=== PATIENT | female | born 1990 | race Two or more races ===

== ENCOUNTER 2018-07-14 11:15 | Emergency (ER) | payer OTHER ==
[2018-07-14 11:21] VITALS: BMI 22.6
--- NOTE | 2018-07-14 12:12 | PDOC ---
History of Present Illness - General History Source: Patient Exam Limitations: No Limitations - History of Present Illness Initial Comments: 07/14/18 13:04 Patient is a 28-year-old female, [id number], with no past medical history, who presents to the emergency department today for vaginal bleeding. Patient states that she took home test on Wednesday and it was positive. Patient states that the first day of her last menstrual cycle was May 07 2018. Today patient states she noted faint red blood on the toilet paper when she wiped. She was concerned so she came to the emergency department. Denies fevers, chills , abdominal pain, nausea, vomiting, frequency, urgency. <Beverly Nunez - Last Filed: 07/14/18 16:46> <Marquez Fragoso - Last Filed: 07/15/18 13:23> - General Chief Complaint: Vaginal Sxs Stated Complaint: VAGINAL BLEEDING () Time Seen by Provider: 07/14/18 12:07 Past History - Travel Traveled outside of the country in the last 30 days: No Close contact w/someone who was outside of country & ill: No - Past Medical History COPD: No - Suicide/Smoking/Psychosocial Hx Smoking History: Never smoked Information on smoking cessation initiated: No Hx Alcohol Use: No Drug/Substance Use Hx: No Substance Use Type: None <Beverly Nunez - Last Filed: 07/14/18 16:46> <Marquez Fragoso - Last Filed: 07/15/18 13:23> - Past Medical History Allergies/Adverse Reactions: Allergies Allergy/AdvReac Type Severity Reaction Status Date / Time No Known Allergies Allergy Verified 07/14/18 11:20 Home Medications: Ambulatory Orders Cephalexin Monohydrate [Keflex -] 500 mg PO BID #14 capsule 07/14/18 Review of Systems - Review of Systems Able to Perform ROS?: Yes Comments:: 07/14/18 12:09 CONSTITUTIONAL: Absent: fever, chills, diaphoresis, generalized weakness, malaise, loss of appetite HEENT: Absent: rhinorrhea, nasal congestion, throat pain, throat swelling, difficulty swallowing, mouth swelling, ear pain, eye pain, visual Changes CARDIOVASCULAR: Absent: chest pain, loss of consciousness, palpitations, irregular heart rate, peripheral edema RESPIRATORY: Absent: cough, shortness of breath, dyspnea with exertion, orthopnea, wheezing, stridor, hemoptysis GASTROINTESTINAL: Absent: abdominal pain, abdominal distension, nausea, vomiting, diarrhea, constipation, melena, hematochezia GENITOURINARY: Present: vaginal bleeding; Absent: dysuria, frequency, urgency, hesitancy, hematuria, flank pain, genital pain MUSCULOSKELETAL: Absent: myalgia, arthralgia, joint swelling SKIN: Absent: rash, itching, pallor HEMATOLOGIC/IMMUNOLOGIC: Absent: easy bleeding, easy bruising, lymphadenopathy, frequent infections ENDOCRINE: Absent: unexplained weight gain, unexplained weight loss, heat intolerance, cold intolerance NEUROLOGIC: Absent: headache, focal weakness or paresthesias, dizziness, unsteady gait, seizure, mental status changes, bladder or bowel incontinence PSYCHIATRIC: Absent: anxiety, depression, suicidal or homicidal ideation, hallucinations. Is the patient limited Mongolian proficient: No <Beverly Nunez - Last Filed: 07/14/18 16:46> *Physical Exam - Vital Signs Last Vital Signs Temp Pulse Resp BP Pulse Ox 98 F 93 H 19 129/74 100 07/14/18 11:17 18 11:17 07/14/18 11:17 07/14/18 11:17 07/14/18 11:17 - Physical Exam Comments: 07/14/18 12:09 GENERAL: Well developed, well nourished. Awake and alert. No acute distress. HEENT: Normocephalic, atraumatic. PERRLA, EOMI. No conjunctival pallor. Sclera are non- icteric. Moist mucous membranes. Oropharynx is clear. NECK: Supple. Full ROM. No JVD. Carotid pulses 2+ and symmetric, without bruits. No thyromegaly. No lymphadenopathy. CARDIOVASCULAR: Regular rate and rhythm. No murmurs, rubs, or gallops. Distal pulses are 2+ and symmetric. PULMONARY: No evidence of respiratory distress. Lungs clear to auscultation bilaterally. No wheezing, rales or rhonchi. ABDOMINAL: Soft. Non-tender. Non-distended. No rebound or guarding. No organomegaly. Normoactive bowel sounds. Pelvic: External genitalia normal without lesions. Vaginal vault is with scant bright red blood blood. Cervix is long and closed. No cervical motion tenderness. Uterus is nontender and normal in size. Adnexa are nontender and without masses. MUSCULOSKELETAL Normal range of motion at all joints. No bony deformities or tenderness. No CVA tenderness. EXTREMITIES: No cyanosis. No clubbing. No edema. No calf tenderness. SKIN: Warm and dry. Normal capillary refill. No rashes. No jaundice. NEUROLOGICAL: Alert, awake, appropriate. Cranial nerves 2-12 intact. No deficits to light touch and temperature in face, upper extremities and lower extremities. No motor deficits in the in face, upper extremities and lower extremities. Normoreflexic in the upper and lower extremities. Normal speech. Toes are down- going bilaterally. Gait is normal without ataxia. PSYCHIATRIC: Cooperative. Good eye contact. Appropriate mood and affect. <Beverly Nunez - Last Filed: 07/14/18 16:46> - Vital Signs Last Vital Signs Temp Pulse Resp BP Pulse Ox 97.8 F 71 17 118/59 L 100 07/14/18 17:45 07/14/18 17:45 07/14/18 17:45 07/14/18 17:45 07/14/18 17:45 <Marquez Fragoso - Last Filed: 07/15/18 13:23> ED Treatment Course - LABORATORY CBC & Chemistry Diagram: 07/14/18 12:28 <Beverly Nunez - Last Filed: 07/14/18 16:46> - LABORATORY CBC & Chemistry Diagram: 07/14/18 12:28 - ADDITIONAL ORDERS Additional order review: 07/14/18 12:28 RBC 4.34 MCV 89.0 MCHC 33.9 RDW 12.6 MPV 10.6 Neutrophils % 35.5 L Lymphocytes % 50.2 H Monocytes % 12.2 H Eosinophils % 1.3 Basophils % 0.8 - Medications Given in the ED: ED Medications Discontinued Medications Generic Name Dose Route Start Last Admin Trade Name Freq PRN Reason Stop Dose Admin Rho Immune Globulin 1,500 unit 07/14/18 15:20 07/14/18 17:23 Rhogam Plus IM 07/14/18 15:21 1,500 unit ONCE ONE Administration <Marquez Fragoso - Last Filed: 07/15/18 13:23> Medical Decision Making - Medical Decision Making 07/14/18 15:46 Patient is a 28-year-old female, G2 A1 P0 who presents to the emergency department today for vaginal bleeding. Last menstrual cycle began on 05/07/2018. On exam patient with scant right red blood in the vaginal vault. Os is closed at this time. No CMT or adnexal tenderness. UA with +1 leuks; we'll treat prophylactically for UTI given patient is . Ultrasound shows no IUP at this time. Beta is about 600. Early versus miscarriage Patient's blood type is A-. We'll treat with RhoGAM at this time. Patient with no pain at this time. We'll discharge home with strict return precautions. Patient is instructed to return in 2 days for repeat beta and ultrasound. I discussed the physical exam findings, ancillary test results and final diagnoses with the patient. I answered all of the patient's questions. The patient was satisfied with the care received and felt comfortable with the discharge plan and treatment plan. The Patient agrees to follow up with the primary care physician/specialist within 24-72 hours. Return precautions were given. <Beverly Nunez - Last Filed: 07/14/18 16:46> - Medical Decision Making I reviewed the case of the mid-level practitioner and was available for consultation while in the emergency department <Marquez Fragoso - Last Filed: 07/15/18 13:23> *DC/Admit/Observation/Transfer - Discharge Dispostion Decision to Admit order: No <Beverly Nunez - Last Filed: 07/14/18 16:46> <Marquez Fragoso - Last Filed: 07/15/18 13:23> Diagnosis at time of Disposition: Threatened - Discharge Dispostion Disposition: HOME Condition at time of disposition: Stable - Prescriptions Prescriptions: Cephalexin Monohydrate [Keflex -] 500 mg PO BID #14 capsule - Referrals Referrals: Amber Felipe [Primary Care Provider] - - Patient Instructions Printed Discharge Instructions: DI for Urinary Tract Infection (UTI), DI for Vaginal Bleeding During Additional Instructions: You were evaluated for your vaginal bleeding today. Your ultrasound did not show a at this time. This is most likely due to the fact that you are approximately 4 weeks . You need to return to the emergency department in 2 days for repeat beta and ultrasound to monitor the . Your given RhoGAM today. You also have a urinary tract infection at this time. Please take Keflex twice a day for one week. Drink plenty of fluids. Please follow up with your [employer] this week. Return to the emergency department sooner if he develops worsening bleeding ( bleeding through more than 1 pad an hour), fevers, abdominal pain, or if you have any changes in your symptoms.
[2018-07-14 12:46] LABS: BASO % 0.8 % (0-2.0); EOS % 1.3 % (0-4.5); HEMATOCRIT 38.6 % (32.4-45.2); HEMOGLOBIN 13.1 GM/dL (10.7-15.3); LYMPH % 50.2 % (8-40); MCH 30.2 pg (25.7-33.7); MCHC 33.9 g/dl (32.0-36.0); MEAN PLT VOLUME 10.6 fl (7.5-11.1); MONO % 12.2 % (3.8-10.2); NEUT % 35.5 % (42.8-82.8); PLATELET COUNT 195 K/MM3 (134-434); RBC 4.34 M/mm3 (3.60-5.2); RDW 12.6 % (11.6-15.6); URINE APPEARANCE CLEAR; URINE BILIRUBIN NEGATIVE (<2.0 mg/dL); URINE COLOR COLORLESS; URINE GLUCOSE (UA) NEGATIVE (NEGATIVE); URINE KETONE NEGATIVE (NEGATIVE); URINE LEUK ESTERASE 1+ (NEGATIVE); URINE NITRITE NEGATIVE (NEGATIVE); URINE PROTEIN NEGATIVE (NEGATIVE); URINE UROBILINOGEN NEGATIVE mg/dL (0.2-1.0); WHITE BLOOD COUNT 4.5 K/mm3 (4.0-10.0)
[2018-07-14 12:53] LABS: EPI CELLS FEW /HPF (FEW); URINE BACTERIA RARE /hpf (NONE SEEN)
[2018-07-14] MEDS ORDERED: RHO(D) IMMUNE GLOBULIN 1,500 UNIT DISP.SYRIN IM ONE (15:20)
[2018-07-14 18:58] VITALS: BP 118/59; PULSE 71; TEMP 97.8
== END 2018-07-14 17:45 | disposition home or self-care (01) ==
LOC: JER 11:15
DX: O26.891 Other specified pregnancy related conditions, first trimester (principal); O20.0 Threatened abortion; O23.31 Infections of other parts of urinary tract in pregnancy, first trimester; Z3A.00 Weeks of gestation of pregnancy not specified
CPT/HCPCS: 36415; 76817-TC; 81003; 81015; 84702; 85025; 86850; 86900; 86901; 86999; 87086; 99283-25; J1561

== ENCOUNTER 2019-01-27 09:55 | Emergency (ER) | payer SELFPAY, OTHER | END 2019-01-27 11:38 | disposition home or self-care (01) | LOC: JERFT 09:55 ==

== ENCOUNTER 2019-04-15 12:09 | Emergency (ER) | payer OTHER | END 2019-04-15 17:29 | disposition home or self-care (01) | LOC: JER 12:09 ==